=== PATIENT | female | born 1995 | race Caucasian/White ===

== ENCOUNTER 2017-05-23 21:07 | Emergency (ER) | payer BC ==
[~2017-05-23] VITALS: Ht 162.6 cm; Wt 70.5 kg
[2017-05-23 21:10] VITALS: TEMP 97.6
[2017-05-23 21:48] LABS: BASO % 0.3 % (0.0-2.0); GRAN # 9.3 (1.4-6.5); GRAN % 92.2 % (42.2-75.2); HEMOGLOBIN 15.4 g/dl (12.5-16.0); LYMPH # 0.3 (1.2-3.4); LYMPH % 3.3 % (20.0-51.0); MEAN CELL VOLUME 91 fl (80.0-100.0); MEAN CORPUSCULAR HEMOGLOBIN 31 pg (27.0-31.0); MEAN CORPUSCULAR HGB CONC 34 g/dl (33.0-37.0); MEAN PLATELET VOLUME 10.2 fl (7.4-10.4); MONO # 0.4 (0.1-0.6); MONO % 3.9 % (1.7-9.3); PLATELET COUNT 241 K/mm3 (130-400); RED BLOOD COUNT 4.93 M/mm3 (4.10-5.30); REDCELL DISTRIBUTION WIDTH-CV 11.8 % (11.5-14.5)
[2017-05-23 21:50] LABS: COLLECTION METHOD CLEAN CATCH
[2017-05-23 21:56] LABS: MUCOUS Present /lpf; PH 5 (5-8); URINE APPEARANCE Clear; URINE BACTERIA Rare /hpf; URINE BILIRUBIN Negative (NEGATIVE); URINE BLOOD 2+ (NEGATIVE); URINE COLOR Yellow; URINE GLUCOSE Negative (NEGATIVE); URINE KETONE 2+ (NEGATIVE); URINE LEUKOCYTE ESTERASE Negative (NEGATIVE); URINE NITRATE Negative (NEGATIVE); URINE PROTEIN(semi-quant) Negative (NEGATIVE); URINE RBC 0-2 /hpf; URINE UROBILINOGEN Negative (NEGATIVE)
[2017-05-23 21:57] LABS: ALBUMIN 5.3 gm/dL (3.5-5.0); BILIRUBIN,TOTAL 0.9 mg/dL (0.0-1.0); CALCIUM 9.8 mg/dL (8.4-10.2); CREATININE, serum 0.63 mg/dL (0.52-1.25); POTASSIUM 4.1 mmol/L (3.4-5.0); TOTAL PROTEIN 8.3 gm/dL (6.4-8.2)
[2017-05-23 22:47] LABS: AMYLASE 65 U/L (30-110); LIPASE 49 U/L (23-300)
[2017-05-23 23:20] VITALS: BP 123/54
[2017-05-23] MEDS ORDERED: ZOFRAN ODT4 MG PO (23:25)
[2017-05-24 00:48] VITALS: PULSE 112
== END 2017-05-24 00:48 | disposition home or self-care (01) ==
LOC: COL.ER 21:07
PROVIDERS: Emergency Medicine
DX: N83.201 Unspecified ovarian cyst, right side (principal); R19.7 Diarrhea, unspecified; R11.10 Vomiting, unspecified
CPT/HCPCS: J2765; J7030; J7120; Q9967